=== PATIENT | female | born 1990 | race Caucasian/White ===

== ENCOUNTER 2019-01-18 09:52 | Outpatient (CLI) ==
--- NOTE | 2019-01-18 10:54 | US ---
EXAM: Thyroid ultrasound History: Thyromegaly. Technique: Multiple sonographic images through the thyroid gland were obtained. Color duplex Dopple r was used to interrogate vascular flow. Findings: The right lobe of the thyroid measures 4.7 cm x 1.9 cm x 1.7 cm and is without discrete nodule identi fied. The thyroid isthmus measures 0.3 cm in thickness. The left lobe of the thyroid measures 3.6 cm x 1.3 cm x 1.5 cm and is without discrete nodule identif ied. No extrathyroidal masses are identified. Thyroid gland is not hypervascular. Impression: Normal thyroid ultrasound
== END 2019-01-18 09:53 | disposition home or self-care (01) ==
LOC: RAD 09:52
PROVIDERS: ATTEND Nurse Practitioner
DX: E01.0 Iodine-deficiency related diffuse (endemic) goiter (principal); E66.09 Other obesity due to excess calories; F39 Unspecified mood [affective] disorder; M25.531 Pain in right wrist; R06.83 Snoring; R45.86 Emotional lability; R53.83 Other fatigue; R63.5 Abnormal weight gain; R68.89 Other general symptoms and signs
CPT/HCPCS: 36415; 83001; 83002; 84439; 84443; 84480